=== PATIENT | female | born 1985 | race Two or more races ===

== ENCOUNTER 2019-08-09 00:02 | Emergency (ER) | payer MEDICAID, OTHER ==
[~2019-08-09] VITALS: Ht 160 cm; Wt 72.6 kg
[2019-08-09 00:12] VITALS: BP 119/70
[2019-08-09] MEDS ORDERED: DEXAMETHASONE 4 MG TABLET ONE (00:52)
[2019-08-09] MEDS ORDERED: DEXAMETHASONE 1 MG TABLET PO ONE (01:00)
== END 2019-08-09 00:57 | disposition home or self-care (01) ==
LOC: ER 00:07
DX: J02.9 Acute pharyngitis, unspecified (principal); R05 Cough; R50.9 Fever, unspecified; Z20.828 Contact with and (suspected) exposure to other viral communicable diseases
CPT/HCPCS: 99283; J8540